=== PATIENT | male | born 1960 | race Caucasian/White ===

== ENCOUNTER 2022-08-21 00:57 | Day surgery (SDC) | payer BC, SELFPAY ==
[2022-08-07 13:14] VITALS: BMI 32.3
--- NOTE | 2022-08-20 16:08 | PM.HPGS ---
History of Present Illness History of Present Illness Consent: Risks, benefits, and alternatives have been discussed and questions answered. Patient agrees to proceed with procedure. Chief complaint: neoplasm screening Narrative: Yair Barone is a 62 year old male Referred for colon cancer screening. His last colonoscopy was 10 years ago. At that time he did apparently have 1 polyp removed Review of Systems Review of Systems: All systems reviewed & are unremarkable except as noted in HPI and below PMFSH Social History Social History Alcohol intake: current Drinks per week: 6 Living arrangements: with family Spiritual care concerns: No Meds Home Medications and Allergies Home Medications Medication Instructions Recorded Confirmed Type fluoxetine 20 mg capsule 20 mg PO DAILY 08/07/22 08/21/22 History propranolol 60 mg capsule,24 60 mg PO DAILY 08/07/22 08/21/22 History hr,extended release Allergies Allergy/AdvReac Type Severity Reaction Status Date / Time Sulfa (Sulfonamide Allergy Unknown Verified 08/21/22 11:46 Antibiotics) Exam Resp: Auscultation: clear to auscultation bilaterally Cardio: Rate: regular rate Rhythm: regular rhythm GI: GI Palp: Yes Soft to palpation and No Tenderness to palpation present (GI) Assessment and Plan Assessment and plan (1) Colon cancer screening: Code(s): Z12.11 - Encounter for screening for malignant neoplasm of colon Status: Acute Assessment and Plan: Colonoscopy with possible biopsy or polypectomy or cautery or injection of substances.
[2022-08-21 11:48] VITALS: BP 150/87; PULSE 59; RESP 18; TEMP 36.1; O2SAT 100; BMI 36.5
[2022-08-21] MEDS: LACTATED RINGERS 1,000 ML 150 ML IV CONT (11:50)
--- NOTE | 2022-08-21 12:04 | WPDANESEPPF ---
Anes - Initial Pre Proc Eval Procedure: Operation Date: 08/21/22 13:00 Proposed Procedures p Screening Colonoscopy - Marcelo Garcia MD Date/Time: 08/21/22 12:04 Surgeon: Marcelo Garcia MD Pre Op Diagnosis: neoplasm screening Patient Data Age: 62 Gender: M Height: 1.68 m Weight: 102.6 kg Last Vital Signs Temp 97.0 F L 08/21/22 11:48 Pulse 59 L 08/21/22 11:48 Resp 18 08/21/22 11:48 BP 150/87 H 08/21/22 11:48 Pulse Ox 100 08/21/22 11:48 O2 Del Method Room Air 08/21/22 11:48 Allergies Allergy/AdvReac Type Severity Reaction Status Date / Time Sulfa (Sulfonamide Allergy Unknown Verified 08/21/22 11:46 Antibiotics) Home Medications Medication Instructions Recorded Confirmed Type fluoxetine 20 mg capsule 20 mg PO DAILY 08/07/22 08/21/22 History propranolol 60 mg capsule,24 60 mg PO DAILY 08/07/22 08/21/22 History hr,extended release Patient hx anesthesia problems: none Family hx anesthesia problems: none Results Review: All pre-operative results and documents have been reviewed as part of the pre-operative evaluation. [facility] Social History Social History Alcohol intake: current Drinks per week: 6 Living arrangements: with family Spiritual care concerns: No Anes - Eval Final PreProcedure Day of Procedure 08/21/22 12:04 Patient weight: obese Heart: regular rate and rhythm Lungs: clear to auscultation Airway: Mallampati scale class II Neurological: alert and oriented Last oral intake: >/= 8 hours ASA classification: III Emergent: no Anesthetic plan: proceed Anesthesia type and monitoring: general GIVS and standard monitoring Results Review: All pre-operative results and documents have been reviewed as part of the pre-operative evaluation. Informed Consent: The patient's anesthetic plan and its attendant risks and benefits were discussed with the patient/family/POA. Questions were solicited and answers provided to the satisfaction of the patient/family/POA.
[2022-08-21] MEDS: SIMETHICONE ORAL SUSPENSION 20 MG/0.3 ML 30 ML BOTTLE 0.6 ML IRRIGATION (12:44)
[2022-08-21 12:51] VITALS: BP 103/55; PULSE 62; RESP 21; O2SAT 95
[2022-08-21 13:01] VITALS: BP 116/66; PULSE 54; RESP 22; O2SAT 94
[2022-08-21 13:11] VITALS: BP 122/70; PULSE 56; RESP 19; O2SAT 100
== END 2022-08-21 13:21 | disposition home or self-care (01) ==
PROVIDERS: PCP Internal Medicine; Visit Provider Internal Medicine Gastroenterology
PROC: 0DJD8ZZ Inspection of Lower Intestinal Tract, Via Natural or Artificial Opening Endoscopic (ICD-10-PCS; CPT 45378; principal; 2022-08-21 13:00)
DX: Z12.11 Encounter for screening for malignant neoplasm of colon (principal); Z86.010 Personal history of colon polyps; Z80.0 Family history of malignant neoplasm of digestive organs; E66.9 Obesity, unspecified; Z68.36 Body mass index [BMI] 36.0-36.9, adult
CPT/HCPCS: 45378; J2704; J7120